=== PATIENT | male | born 1945 | race Caucasian/White ===

== ENCOUNTER 2017-01-09 15:24 | Day surgery (SDC) | payer MEDICARE, OTHER ==
[~2017-01-09] VITALS: Ht 170.2 cm; Wt 78.8 kg
[~2017-01-09 15:24] MED LIST: ASPIRIN PO; CRESTOR PO; OLME40TA14 PO; PLAVIX PO; ZETIA PO
[2017-01-09 16:12] VITALS: Ht 170.2 cm; Wt 78.8 kg
[2017-01-09 16:27] VITALS: BP 144/78; PULSE 67; RESP 16
[2017-01-09] MEDS ORDERED: PROPOFOL 20 ML ONE ×2 (16:34)
[2017-01-09] MEDS ORDERED: FAMO40TA52 PO (16:49)
--- NOTE | 2017-01-09 17:16 | OPPN ---
Date/Time of Note Date/Time of Note DATE: 01/09/17 TIME: 17:14 Operative Report Preoperative Diagnosis Chronic heartburn Change in bowel habit Postoperative Diagnosis Small hiatal hernia and gastroesophageal reflux disease Gastritis with erosions Small sigmoid colon polyp was removed Internal hemorrhoids Operation/Procedure Performed Esophagogastroduodenoscopy and biopsy Colonoscopy and biopsy Surgeon see signature line operating room assistant None Anesthesia: MAC Estimated blood loss: none Transfusion Required none Specimen Gastric mucosal biopsy Biopsy sigmoid polyp Grafts/Implants none Complications none MAR WHALEN MD Jan 09, 2017 17:16
[2017-01-09] MEDS ORDERED: METOCLOPRAMIDE 10 MG INJ ONE (17:33)
[2017-01-09 17:56] VITALS: BP 169/77; RESP 20
--- NOTE | 2017-01-09 20:08 | GILP ---
DATE OF PROCEDURE: 01/09/2017 PROCEDURE: 1. Esophagogastroduodenoscopy and biopsy. 2. Colonoscopy and biopsy. SURGEON: Mar Ewing MD. PREOPERATIVE DIAGNOSIS: 1. Gastroesophageal reflux disease. 2. Change in bowel habit. POSTOPERATIVE DIAGNOSIS: 1. Small hiatal hernia. 2. Gastroesophageal reflux disease. 3. Gastritis with erosions. 4. Gastric mucosal biopsies were taken for Helicobacter pylori test. 5. Colonoscopy all the way to the cecum. 6. Small sigmoid colon polyp was removed. 7. Internal hemorrhoids. 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 Patient also noticed a change in the bowel habit. He had history of colon polyps. The patient was scheduled for endoscopy and colonoscopy for further ev aluation. The procedures and possible complications were well explained to the patient. He understood and con sented to the procedures. Under the influence of anesthesia, the gastroscope was carefully introduced into the esophagus and u nder direct vision, it was advanced to the stomach and through the pylorus into the duodenal bulb an d descending duodenum. FINDINGS: ESOPHAGUS: The patient had a small hiatal hernia and gastroesophageal reflux disease. STOMACH: He had gastritis with erosions. Gastric mucosal biopsies were taken for H. pylori test. DUODENUM: Normal. The colonoscope was carefully introduced in the rectum and under direct vision, it was advanced all the way to the cecum. FINDINGS: The patient had a small sigmoid colon polyp and it was removed using the biopsy forceps. He had internal hemorrhoids. He tolerated the procedures very well and there was no complication from the procedures. At the end of the procedures, he was awake with stable vital signs and he was discharged home to the care of h is family. IMPRESSION: 1. Small hiatal hernia and gastroesophageal reflux disease. 2. Gastritis with erosions. 3. Gastric mucosal biopsies were taken for Helicobacter pylori test. 4. Colonoscopy all the way to the cecum. 5. Small sigmoid polyp was removed using biopsy forceps. 6. Internal hemorrhoids. PLAN: 1. Continue Pepcid p.r.n. 2. Lifestyle modifications. 3. Next screening colonoscopy in 10 years. Dictated By: MAR TORRES/LEODAN Conf#: [id number] DID#: [id number]
--- NOTE | 2017-01-10 16:52 | CONS ---
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 The patient had screening colonoscopy 5 years ago, and he had poor preparation and the colonoscopic examination was incomplete and inadequat e. He denies any history of rectal bleeding. There is no past history of colon neoplasm. His appe tite is good and he is not losing any weight. He does not have any upper abdominal pain, nausea or vomiting. He has history of gastroesophageal reflux disease and he takes Pepcid. He is on baby asp irin a day. No history of gallstones or liver disease. He is hypertensive. Not a diabetic. He caro s coronary artery disease, and he is status post coronary artery stent placement. No lung disease. He has chronic kidney disease with elevated creatinine. He also has hyperlipidemia. He has arthri tis and degenerative joint disease of the back, and he is status post laminectomy. He also had appe ndectomy in the past. Nonsmoker. No alcohol abuse. No family history of gastrointestinal tract ne oplasm. NO DRUG ALLERGIES. MEDICATIONS: 1. Benicar 40 mg p.o. daily. 2. Crestor 20 mg p.o. daily. 3. Aspirin 81 mg p.o. daily. 4. Pepcid 40 mg p.o. p.r.n. PHYSICAL EXAMINATION: VITAL SIGNS: He is 5 feet 7 inches tall and he weighs 176 pounds. BMI 28. Blood pressure is 136/8 2. HEART: Normal heart sounds. LUNGS: Clear. ABDOMEN: Soft. No masses. Normal bowel sounds. NEUROLOGIC: Normal neurological exam. IMPRESSION: 1. Change in bowel habit. 2. The patient had screening colonoscopy 5 years ago and he had poor prep resulting in inadequate a nd incomplete examination. 3. Hypertension. 4. Coronary artery disease and status post coronary artery stent placement. 5. The patient is on baby aspirin a day. 6. Hyperlipidemia. 7. Chronic kidney disease with elevated serum creatinine. 8. Arthritis and degenerative joint disease of the back, and status post laminectomy. 9. Status post appendectomy. 10. Elevated BMI. PLAN: 1. Colonoscopy for further evaluation. 2. Because of the patient's age, he needs monitored anesthesia care. 3. Follow up with the primary MD for the management of hypertension and elevated BMI. The procedure and possible complications were well explained to the patient. He understands and con sents to the procedure. Dictated By: MAR TORRES/LEODAN Conf#: [id number] DID#: [id number]
== END 2017-01-09 18:02 | disposition home or self-care (01) ==
LOC: GIL 15:24
PROVIDERS: ATTEND Internal Medicine Gastroenterology
DX: R19.4 Change in bowel habit (principal); D12.5 Benign neoplasm of sigmoid colon; K21.9 Gastro-esophageal reflux disease without esophagitis; K29.60 Other gastritis without bleeding; K64.8 Other hemorrhoids; I10 Essential (primary) hypertension; I25.10 Atherosclerotic heart disease of native coronary artery without angina pectoris; E78.5 Hyperlipidemia, unspecified; Z79.82 Long term (current) use of aspirin
CPT/HCPCS: 43239; 45380; 87081; 88305; J2765